=== PATIENT | female | born 1955 | race Caucasian/White ===

== ENCOUNTER 2018-12-28 16:43 | Outpatient (CLI) | payer OTHER ==
--- NOTE | 2018-12-28 18:31 | RAD ---
LEFT KNEE THREE VIEWS: 12/28/18 No fracture or joint effusion was seen. The joint space is normal in width. The articular surfaces ar e smooth. IMPRESSION: No acute findings. POS: HOME
== END 2018-12-28 16:44 | disposition home or self-care (01) ==
LOC: BURRAD 16:43
PROVIDERS: ATTEND Family Medicine
DX: M25.562 Pain in left knee (principal)